=== PATIENT | male | born 1955 | race Caucasian/White ===

== ENCOUNTER 2022-10-21 09:51 | Day surgery (SDC) | payer MEDICARE ==
[~2022-10-21] VITALS: Ht 182.9 cm; Wt 85.1 kg
[2022-10-21] MEDS ORDERED: B COMPLEX FORM0.4 MG (10:24)
[2022-10-21] MEDS ORDERED: Magnesium30 MG (10:25)
[2022-10-21] MEDS ORDERED: Coq-1030 MG (10:26)
== END 2022-10-21 12:42 | disposition home or self-care (01) ==
LOC: ORSCSDS 09:51
PROVIDERS: Student in an Organized Health Care Education/Training Program
PROC: 0DBK8ZX Excision of Ascending Colon, Via Natural or Artificial Opening Endoscopic, Diagnostic (ICD-10-PCS; principal; 2022-10-21 11:15)
PROC: 0DBH8ZX Excision of Cecum, Via Natural or Artificial Opening Endoscopic, Diagnostic (ICD-10-PCS; principal; 2022-10-21 11:15)
PROC: 0DBL8ZX Excision of Transverse Colon, Via Natural or Artificial Opening Endoscopic, Diagnostic (ICD-10-PCS; principal; 2022-10-21 11:15)
PROC: 0DBN8ZX Excision of Sigmoid Colon, Via Natural or Artificial Opening Endoscopic, Diagnostic (ICD-10-PCS; principal; 2022-10-21 11:15)
DX: Z12.11 Encounter for screening for malignant neoplasm of colon (principal); Z86.010 Personal history of colon polyps; D12.2 Benign neoplasm of ascending colon; D12.0 Benign neoplasm of cecum; K63.5 Polyp of colon; K57.30 Diverticulosis of large intestine without perforation or abscess without bleeding; Z85.820 Personal history of malignant melanoma of skin
CPT/HCPCS: 88305; J2704; J7120

== ENCOUNTER 2023-04-15 07:07 | Day surgery (SDC) | payer MEDICARE ==
[~2023-04-15] VITALS: Ht 182.9 cm; Wt 83.7 kg
[~2023-04-15 07:07] MED LIST: B COMPLEX FORM0.4 MG; Coq-1030 MG; Magnesium30 MG
== END 2023-04-15 10:06 | disposition home or self-care (01) ==
LOC: ORSCSDS 07:07
PROVIDERS: Student in an Organized Health Care Education/Training Program
PROC: 0DBK8ZX Excision of Ascending Colon, Via Natural or Artificial Opening Endoscopic, Diagnostic (ICD-10-PCS; principal; 2023-04-15 08:45)
PROC: 0DBL8ZX Excision of Transverse Colon, Via Natural or Artificial Opening Endoscopic, Diagnostic (ICD-10-PCS; principal; 2023-04-15 08:45)
PROC: 0DBM8ZX Excision of Descending Colon, Via Natural or Artificial Opening Endoscopic, Diagnostic (ICD-10-PCS; principal; 2023-04-15 08:45)
DX: Z86.010 Personal history of colon polyps (principal); D12.3 Benign neoplasm of transverse colon; K63.5 Polyp of colon; K57.30 Diverticulosis of large intestine without perforation or abscess without bleeding; Z85.820 Personal history of malignant melanoma of skin
CPT/HCPCS: 88305; J2001; J2704